=== PATIENT | male | born 2000 | race Caucasian/White ===

== ENCOUNTER 2023-09-03 00:44 | Inpatient (IN) | payer OTHER ==
[~2023-09-03] VITALS: Ht 182.9 cm; Wt 87.4 kg
[2023-09-03 02:55] LABS: AMPHETAMINES LEVEL URINE NEGATIVE (NEGATIVE); BARBITURATES URINE NEGATIVE (NEGATIVE); BENZODIAZEPINES URINE NEGATIVE (NEGATIVE); CANNABINOIDS URINE NEGATIVE (NEGATIVE); COCAINE METABOLITE URINE NEGATIVE (NEGATIVE); METHADONE URINE NEGATIVE (NEGATIVE); OPIATES URINE NEGATIVE (NEGATIVE); PHENCYCLIDINE URINE NEGATIVE (NEGATIVE)
[2023-09-03 03:01] LABS: HEMATOCRIT 37.6 % (42.0-52.0); HEMOGLOBIN 13.2 g/dl (13.5-17.5); MEAN CORPUSCULAR HEMOGLOBIN 31.4 pg (27.0-33.0); MEAN CORPUSCULAR HGB CONC 35.1 g/dl (32.0-36.5); MEAN CORPUSCULAR VOLUME 89.5 fl (80.0-96.0); PLATELET COUNT, AUTOMATED 166 10^3/uL (150-450); WHITE BLOOD COUNT 6.2 10^3/uL (4.0-10.0)
[2023-09-03 03:31] LABS: ETHYL ALCOHOL (ETHANOL) < 0.003 % (0.000-0.010)
[2023-09-03 03:33] LABS: SALICYLATE LEVEL < 3.0 MG/DL (<30)
[2023-09-03 03:34] LABS: ALBUMIN 3.9 G/DL (3.2-5.2); ALKALINE PHOSPHATASE 62 U/L (46-116); ALT/SGPT 39 U/L (7.0-40); AST/SGOT 41 U/L (<34); BILIRUBIN,DIRECT 0.2 MG/DL (<0.4); BILIRUBIN,TOTAL 0.5 MG/DL (0.3-1.2); BLOOD UREA NITROGEN 16 MG/DL (9-23); CALCIUM LEVEL 8.9 MG/DL (8.5-10.1); CARBON DIOXIDE LEVEL 28 MMOL/L (20-31); CHLORIDE LEVEL 108 MMOL/L (98-107); CREATININE FOR GFR 0.95 MG/DL (0.70-1.30); GLOMERULAR FILTRATION RATE > 60.0 (>60); GLUCOSE, FASTING 90 MG/DL (60-100); POTASSIUM SERUM 3.9 MMOL/L (3.5-5.1); SODIUM LEVEL 142 MMOL/L (136-145); TOTAL PROTEIN 6.5 G/DL (5.7-8.2)
[2023-09-03 03:35] LABS: THYROID STIMULATING HORMONE 1.895 uIU/ML (0.55-4.78)
[2023-09-03] MEDS ORDERED: IBUPROFEN 400MG TAB PO PRN (06:25)
[2023-09-03] MEDS ORDERED: MOM 30ML SUSPENSION UDC PO PRN (06:25)
[2023-09-03] MEDS ORDERED: diphenhydrAMINE 25MG CAP PO PRN (06:25)
[2023-09-03] MEDS ORDERED: MAALOX 30 ML SUSP *UDC PO PRN (06:25)
[2023-09-03] MEDS ORDERED: ACETAMINOPHEN TAB 650MG DOSE (2X325MG) PO PRN (06:25)
[2023-09-03] MEDS ORDERED: HOME MED LIST COMPLETE! XX SCH (06:45)
[2023-09-03] MEDS: NICOTINE 21MG/24HR 1 EA TRANSDERMAL TD SCH ×2 (09:00→16:55)
[2023-09-03 11:15] VITALS: BP 129/61; TEMP 97; O2SAT 98
[2023-09-03] MEDS: CitaloPRAM (CeleXA) 20 MG TAB PO SCH (12:28)
[2023-09-03 18:33] VITALS: BP 137/63; TEMP 99.7
[2023-09-04 06:10] VITALS: BP_SYST 106; BP_SYST 112; BP_DIAS 54; BP_DIAS 57; TEMP 98.2; TEMP 98.6; O2SAT 97; O2SAT 99
[2023-09-04] MEDS: CitaloPRAM (CeleXA) 20 MG TAB PO SCH (09:22)
[2023-09-04] MEDS: NICOTINE 21MG/24HR 1 EA TRANSDERMAL TD SCH (09:23)
[2023-09-04 18:00] VITALS: BP 136/67; TEMP 98.2
[2023-09-05 06:29] VITALS: BP 110/54; TEMP 98.7; O2SAT 100
[2023-09-05] MEDS: CitaloPRAM (CeleXA) 20 MG TAB PO SCH (08:31)
[2023-09-05] MEDS: NICOTINE 21MG/24HR 1 EA TRANSDERMAL TD SCH (08:32)
[2023-09-05 16:25] VITALS: BP 138/81; TEMP 97.6; O2SAT 99
[2023-09-05] MEDS: traZODone 50 MG TAB PO PRN (19:52)
[2023-09-06 06:32] VITALS: BP 144/65; TEMP 98.1; O2SAT 96
[2023-09-06] MEDS: CitaloPRAM (CeleXA) 20 MG TAB PO SCH (08:35)
[2023-09-06] MEDS: NICOTINE 21MG/24HR 1 EA TRANSDERMAL TD SCH (08:36)
[2023-09-06] MEDS: busPIRone 10 MG TAB PO SCH ×2 (11:05→20:50)
[2023-09-06 16:17] VITALS: BP 109/63; TEMP 98.1; O2SAT 98
[2023-09-06] MEDS: traZODone 50 MG TAB PO PRN (20:50)
[2023-09-06] MEDS: PRAZOSIN 1 MG CAP PO SCH (20:51)
[2023-09-07 06:25] VITALS: BP 104/49; TEMP 96.9; O2SAT 97
[2023-09-07] MEDS: NICOTINE 21MG/24HR 1 EA TRANSDERMAL TD SCH (07:51)
[2023-09-07] MEDS: busPIRone 10 MG TAB PO SCH ×2 (07:51→21:05)
[2023-09-07] MEDS: CitaloPRAM (CeleXA) 20 MG TAB PO SCH (07:52)
[2023-09-07 17:51] VITALS: BP 120/68; TEMP 98.3; O2SAT 100
[2023-09-07 21:05] VITALS: BP 138/76
[2023-09-07] MEDS: PRAZOSIN 1 MG CAP PO SCH (21:05)
[2023-09-07] MEDS: traZODone 50 MG TAB PO PRN (21:05)
[2023-09-08 06:44] VITALS: BP 129/61; TEMP 97.7; O2SAT 99
[2023-09-08] MEDS: NICOTINE 21MG/24HR 1 EA TRANSDERMAL TD SCH (09:00)
[2023-09-08] MEDS: CitaloPRAM (CeleXA) 20 MG TAB PO SCH (09:04)
[2023-09-08] MEDS: busPIRone 10 MG TAB PO SCH (09:04)
[2023-09-08] MEDS ORDERED: MINI1CAP PO (10:05)
[2023-09-08] MEDS ORDERED: CELE20TA PO (10:05)
[2023-09-08] MEDS ORDERED: BUSP10TA PO (10:05)
[2023-09-08] MEDS ORDERED: TRAZ-252 PO (10:05)
[2023-09-08] MEDS ORDERED: NICO21PAT TD (10:05)
== END 2023-09-08 10:57 | disposition home or self-care (01) | DRG 885 ==
LOC: M ED 00:44 → M ED INP 06:23 → M PSY 10:53
PROVIDERS: ADMIT Student in an Organized Health Care Education/Training Program; ATTEND Student in an Organized Health Care Education/Training Program
DX: F33.1 Major depressive disorder, recurrent, moderate (principal); R45.851 Suicidal ideations; F41.1 Generalized anxiety disorder; Z88.0 Allergy status to penicillin; F90.9 Attention-deficit hyperactivity disorder, unspecified type; F17.200 Nicotine dependence, unspecified, uncomplicated; Z79.899 Other long term (current) drug therapy; M79.671 Pain in right foot; M79.672 Pain in left foot